=== PATIENT | male | born 1960 | race Caucasian/White ===

== ENCOUNTER 2018-08-01 20:03 | Emergency (ER) | payer OTHER ==
[~2018-08-01] VITALS: Ht 180.3 cm; Wt 70.3 kg
[2018-08-01] MEDS ORDERED: SYNTHROID125 MCG PO (20:08)
== END 2018-08-02 00:06 | disposition home or self-care (01) ==
LOC: ER 20:03
DX: S00.83XA Contusion of other part of head, initial encounter (principal); M62.838 Other muscle spasm; W18.39XA Other fall on same level, initial encounter; Y93.89 Activity, other specified; Y92.89 Other specified places as the place of occurrence of the external cause; Y99.8 Other external cause status

== ENCOUNTER 2019-06-15 13:17 | Emergency (ER) | payer OTHER ==
[~2019-06-15] VITALS: Ht 172.7 cm; Wt 72.6 kg
[~2019-06-15 13:17] MED LIST: SYNTHROID125 MCG PO
[2019-06-15] MEDS ORDERED: SYNTHROID175 MCG (13:41)
== END 2019-06-15 15:49 | disposition home or self-care (01) ==
LOC: ER 13:17
DX: S46.011A Strain of muscle(s) and tendon(s) of the rotator cuff of right shoulder, initial encounter (principal); X50.0XXA Overexertion from strenuous movement or load, initial encounter; Y93.89 Activity, other specified; Y92.89 Other specified places as the place of occurrence of the external cause; Y99.8 Other external cause status